=== PATIENT | male | born 1950 | race Caucasian/White ===

== ENCOUNTER → 2024-10-30 | Day surgery (SDC) | payer MEDICARE, OTHER ==
[2024-10-28 10:13] LABS: BASOPHILS % 0.6 % (0.0-1.0); EOSINOPHILS # (AUTO) 0.2 (0.0-0.4); EOSINOPHILS % 2.7 % (0.0-6.0); HEMATOCRIT 45.5 % (38.2-49.6); HEMOGLOBIN 15.1 g/dL (14.0-18.0); LYMPHOCYTES % 15.2 % (18.0-39.1); MEAN CORPUSCULAR HEMOGLOBIN 31.4 pg (28-32); MEAN CORPUSCULAR HGB CONC 33.2 g/dL (31-35); MEAN CORPUSCULAR VOLUME 94.6 fL (81-99); MONOCYTES # (AUTO) 0.5 (0.2-0.8); MONOCYTES % 7.7 % (4.4-11.3); NEUTROPHILS # (AUTO) 4.7 (2.1-6.9); NEUTROPHILS % 73.5 % (38.7-80.0); PLATELET COUNT 234 x10e3/uL (140-360); RED BLOOD COUNT 4.81 x10e6/uL (4.3-5.7); RED CELL DISTRIBUTION WIDTH 12.5 % (11.7-14.4)
[2024-10-28 10:18] LABS: ANION GAP 14.1 mmol/L (8-16); CALCIUM 9.1 mg/dL (8.4-10.2); CREATININE, SERUM 0.88 mg/dL (0.72-1.25); POTASSIUM 4.1 mmol/L (3.5-5.1)
[~2024-10-30] MED LIST: ACETAMINOPHEN 1000 MG/100 ML 100 ML IV ONE; AMLODIPINE BESY10 MG PO; ASPIRIN81 MG PO; B-121000 MC2; BUPIVACAINE 0.25% 30ML SDV ONE; BUPIVACAINE/EPI 0.5% 30ML SDV-MPF INJ ONE; CRESTOR40 MG PO; D3-5000125 MCG PO; FENTANYL CITRATE/PF 100MCG/2 ML INJ ONE; FEROSUL325 MG PO; JARDIANCE25 MG PO; KETAMINE 50MG/5ML SYR ONE; LACTATED RINGER'S 1,000 ML ONE; LIDOCAINE HCL 2% LOCAL INJ 5 ML SDV VIAL INJ ONE; LOSARTAN POTAS100 MG PO; METFORMIN HCL500 M1 PO; METFORMIN HCL500 M2 PO; METOPROLOL SUCC50 MG PO; MIDAZOLAM HCL 2 MG/2 ML VIAL ONE; OMEPRAZOLE40 MG PO; ONE-A-DAY ESSE1 EACH; OZEMPIC2 MG/0.75; PHENYLEPHRINE HCL 1% 10 MG/ML VIAL ONE; PROPOFOL IV EMULSION 10 MG/ML 20 ML VIAL ONE; PROPOFOL IV EMULSION 150 ML IV ONE; SODIUM CHLORIDE 0.9% 100 ML ONE; SODIUM CHLORIDE 0.9% INJ 10 ML VIAL ONE; TRESIBA FL200 UNIT/1 PO; ZYRTEC10 M3 PO; [UNRECOGNIZED DRUG - OTHER]
[2024-10-30] MEDS: SODIUM CHLORIDE 0.9% 250ML 250 ML ONE (06:37)
[2024-10-30] MEDS: Vancomycin IV 1 GM VIAL ONE (06:38)
[2024-10-30 09:27] VITALS: TEMP 98.5
[2024-10-30 09:40] VITALS: BP 124/80; PULSE 64; RESP 15; O2SAT 96
== END | disposition home or self-care (01) ==
LOC: OR 05:37
PROVIDERS: ATTEND Podiatrist Foot Surgery
DX: S93.492A Sprain of other ligament of left ankle, initial encounter (principal); S93.412A Sprain of calcaneofibular ligament of left ankle, initial encounter; M93.272 Osteochondritis dissecans, left ankle and joints of left foot; M66.872 Spontaneous rupture of other tendons, left ankle and foot; E11.9 Type 2 diabetes mellitus without complications; I48.91 Unspecified atrial fibrillation; I10 Essential (primary) hypertension; E78.5 Hyperlipidemia, unspecified; K21.9 Gastro-esophageal reflux disease without esophagitis; X58.XXXA Exposure to other specified factors, initial encounter; Z01.810 Encounter for preprocedural cardiovascular examination; Z01.812 Encounter for preprocedural laboratory examination; Z01.818 Encounter for other preprocedural examination; Z88.0 Allergy status to penicillin; Z79.82 Long term (current) use of aspirin; Z79.4 Long term (current) use of insulin; Z79.85 Long-term (current) use of injectable non-insulin antidiabetic drugs; Z79.84 Long term (current) use of oral hypoglycemic drugs; Z79.899 Other long term (current) drug therapy
CPT/HCPCS: 27658; 27696; 28899; 36415; 71046; 76000; 80048; 85025; 88304; 93005; C1713; J0131; J2003; J2250; J2371; J2704 ×2; J3370; J7050 ×2; J7121; Q4150